=== PATIENT | female | born 1950 | race Caucasian/White ===

== ENCOUNTER 2024-03-05 09:22 | Day surgery (SDC) | payer MEDICARE, SELFPAY ==
[2024-03-05] MEDS: BUPIVACAINE HCL 0.25% PF 25 MG/10 ML VIAL 5 ML INJ (10:40)
[2024-03-05] MEDS: TRIAMCINOLONE ACETONIDE 40 MG/ML VIAL 80 MG INJ (10:40)
--- NOTE | 2024-03-05 11:00 | FL_ITS ---
[address] [address] Patient Name: YOGESH PEPE MRN: [id number] date: 1950 Sex: F Assigned Patient Location: [place] Current Patient Location: [place] Accession/Order Number: [id number] Exam Date: 03/05/2024 10:00 Report Date: 03/05/2024 12:42 At the request of: WICHO LIN Procedure: FL guided needle placement EXAMINATION: FL hip inj RUTHIE, FL guided needle placement HISTORY: Bilateral Hip Primary Osteoarthritis FLUORO DOSE: (Cannot calculate) mGy Reference air kerma (Ka,r) COMPARISON: No relevant comparison available. TECHNIQUE: An arthrogram was performed under fluoroscopic guidance using non-ionic contrast material in the usual sterile manner after obtaining informed consent. Standard level fluoroscopic mode of operation utilized. FINDINGS: JOINT: Right and left hip NEEDLE: 25 gauge, 3.5 spinal needle. MEDICATION: 2 mL buffered 1% lidocaine for subcutaneous anesthesia. 2 mL Omnipaque-300 iodinated contrast to visualize the joint space. 40 mg Kenalog, 2 mL 0.5% bupivacaine, and 3 mL Omnipaque 240 injected into the joint space. (Same amount and dosing bilaterally) TECHNIQUE: Anterior approach with prior localization of the femoral artery. A single stick was successful in gaining access to the joint space. CLINICAL: Improvement of joint pain post injection. Right hip: Preinjection 5/10; postinjection 0/10. Left hip: Preinjection 7/10; postinjection 0/10. COMPLICATIONS: None. OTHER: Negative. FL/FL guided needle placement IMPRESSION: 1. Successful therapeutic right hip injection. 2. Successful therapeutic left hip injection. Electronically authenticated by: GAGE MARS Date: 03/05/2024 12:42
--- NOTE | 2024-03-05 11:00 | FL_ITS ---
[address] [address] Patient Name: YOGESH PEPE MRN: [id number] date: 1950 Sex: F Assigned Patient Location: [place] Current Patient Location: Accession/Order Number: [id number] Exam Date: 03/05/2024 10:00 Report Date: 03/05/2024 12:42 At the request of: WICHO LIN Procedure: FL hip inj RUTHIE EXAMINATION: FL hip inj RUTHIE, FL guided needle placement HISTORY: Bilateral Hip Primary Osteoarthritis FLUORO DOSE: (Cannot calculate) mGy Reference air kerma (Ka,r) COMPARISON: No relevant comparison available. TECHNIQUE: An arthrogram was performed under fluoroscopic guidance using non-ionic contrast material in the usual sterile manner after obtaining informed consent. Standard level fluoroscopic mode of operation utilized. FINDINGS: JOINT: Right and left hip NEEDLE: 25 gauge, 3.5 spinal needle. MEDICATION: 2 mL buffered 1% lidocaine for subcutaneous anesthesia. 2 mL Omnipaque-300 iodinated contrast to visualize the joint space. 40 mg Kenalog, 2 mL 0.5% bupivacaine, and 3 mL Omnipaque 240 injected into the joint space. (Same amount and dosing bilaterally) TECHNIQUE: Anterior approach with prior localization of the femoral artery. A single stick was successful in gaining access to the joint space. CLINICAL: Improvement of joint pain post injection. Right hip: Preinjection 5/10; postinjection 0/10. Left hip: Preinjection 7/10; postinjection 0/10. COMPLICATIONS: None. OTHER: Negative. FL/FL hip inj RUTHIE IMPRESSION: 1. Successful therapeutic right hip injection. 2. Successful therapeutic left hip injection. Electronically authenticated by: GAGE MARS Date: 03/05/2024 12:42
[2024-03-05] MEDS: LIDOCAINE HCL 20 ML, SODIUM BICARBONATE 2 MEQ INJ (12:34)
--- NOTE | 2024-03-05 12:35 | PC.NURSE ---
0953: Patient in this day for bilateral hip therapeutic arthrogram. Patient alert and oriented x3 and pleasant. Patient educated on procedure and plan of care. Patient signs consent. Paitent c/o left hip pain at a 7 and right hip pain at a 5. Vital signs as follows: 139/88, HR:82, Spo2: 98% on R.A. Timeout performed at 1033. Right hip procedure started at 1035 and finished at 1041. Patient tolerates without c/o. 1043 left hip initiated and completed at 1051. Patient tolerates without c/o. Band-aids applied to bilateral injection sites. 1057: patient assisted up and ambulates x100 feet. Patient denies pain, rates it at 0. 1103: Patient d/c home in care of self.
== END 2024-03-05 12:44 | disposition home or self-care (01) ==
LOC: FL 09:23
PROVIDERS: Radiology Diagnostic Radiology; PCP Internal Medicine; Visit Provider Nurse Practitioner Family
DX: M16.11 Unilateral primary osteoarthritis, right hip (principal); M16.12 Unilateral primary osteoarthritis, left hip
CPT/HCPCS: 20610; 77002; J0665; J3301; Q9966